=== PATIENT | male | born 1970 | race Two or more races ===

== ENCOUNTER 2017-05-04 11:40 | Day surgery (SDC) | payer OTHER ==
[2017-04-30 08:41] VITALS: BMI 30.7
[~2017-05-04 11:40] MED LIST: LACTATED RINGERS 1,000 ML IV SCH; LIDOCAINE 1% 20 ML VIAL (10MG/ML) FOR IV START INTRADERMA PRN
[2017-05-04 12:56] VITALS: RESP 16; TEMP 98.3
[2017-05-04] MEDS ORDERED: PROPOFOL 10 MG/ML 20 ML VIAL IV ONE (14:01)
--- NOTE | 2017-05-04 14:35 | P.PCN ---
Date of Procedure: 05/04/17 Preoperative Diagnosis: Postoperative Diagnosis: Procedure(s) Performed: Procedure: Total colonoscopy. Preoperative diagnosis: Screening for neoplasia, patient has history of polyps. Postoperative diagnosis: Diverticulosis with no evidence of acute diverticulitis , strictures, polyps or cancer. Preparation: HalfLytely prep. Sedation: Was provided by anesthesia. Brief clinical history: The patient is a 46-year-old male who was scheduled for this evaluation because of history of polyps. Apparently, he had a colonoscopy last year while in [place] and he had 4 polyps removed and was strongly advised to have a repeat exam in one year. At this time, he has no abdominal complaints, bleeding or anemia. Procedure: With the patient on his left lateral decubitus position and after informed consent and adequate sedation, the perianal area was inspected and it did not show any fissures or fistulas. There were no masses felt on digital rectal examination. The Olympus CFQ 160L endoscope was then inserted in the rectum in the usual fashion and advanced to the cecum. The area of the prior polypectomy and marking with spot was noted in the sigmoid around 30 cm from the anal verge. There was no obvious residual polyp or recurrent growth.. Multiple diverticular orifices were seen scattered along the length of the bowel with no evidence of acute diverticulitis or strictures. No other polyps or tumors were seen. I retroflexed the endoscope in the rectum before the endoscope was withdrawn. Low-grade internal hemorrhoids were noted but there was no bleeding. The patient tolerated the procedure well. Plan: The patient was reassured. Discussed dietary measures. With his history , I recommended repeat exam in 2-3 years. He will follow up with you as planned. Implants: Indications for Procedure: Operative Findings: Description of Procedure:
[2017-05-04 14:42] VITALS: BP 128/76; PULSE 59
== END 2017-05-04 14:58 | disposition home or self-care (01) ==
LOC: ORWHC2ENDO 11:40
DX: Z12.11 Encounter for screening for malignant neoplasm of colon (principal); Z86.010 Personal history of colon polyps; K21.9 Gastro-esophageal reflux disease without esophagitis; K57.30 Diverticulosis of large intestine without perforation or abscess without bleeding; K64.8 Other hemorrhoids; I10 Essential (primary) hypertension; Z79.899 Other long term (current) drug therapy
CPT/HCPCS: J2704; G0105